=== PATIENT | female | born 1985 | race Caucasian/White ===

== ENCOUNTER 2022-04-26 12:04 | Emergency (ER) | payer MEDICAID ==
[~2022-04-26] VITALS: Ht 170.2 cm; Wt 59.0 kg
[~2022-04-26 12:04] MED LIST: CETI10TA51 PO; HYDR-4353 PO; ONDA8TAB6 SL
[2022-04-26 12:51] LABS: BASOPHILS % (AUTO) 0.2 % (0-1); EOSINOPHILS % (AUTO) 0.1 % (0-6); HEMATOCRIT 46.5 % (35.0-45.0); HEMOGLOBIN 15.6 g/dl (12.0-16.0); LYMPHOCYTES # (AUTO) 1.4 X10'3 (1.1-4.8); LYMPHOCYTES % (AUTO) 13.6 % (21-51); MEAN CORPUSCULAR HEMOGLOBIN 32.7 PG (27.0-31.0); MEAN CORPUSCULAR HGB CONC 33.6 g/dL (33.0-36.5); MEAN CORPUSCULAR VOLUME 97.3 FL (78-98); MEAN PLATELET VOLUME 9.1 FL (7.4-10.4); MONOCYTES # (AUTO) 0.4 X10'3 (0-0.9); MONOCYTES % (AUTO) 3.9 % (2-12); NEUTROPHILS # (AUTO) 8.7 X10'3 (1.8-7.7); NEUTROPHILS % (AUTO) 82.2 % (42-75); PLATELET COUNT 343 X10'3 (140-440); RED BLOOD COUNT 4.78 X10'6 (4.20-5.60); RED CELL DISTRIBUTION WIDTH 12.4 % (11.5-14.5); WHITE BLOOD COUNT 10.6 X10'3 (4.5-11.0)
[2022-04-26 13:19] LABS: ALANINE AMINOTRANSFERASE 31 U/L (12-78); ALBUMIN 4.2 G/DL (3.4-5.0); ALBUMIN/GLOBULIN RATIO 1.1 (1.1-1.5); ALKALINE PHOSPHATASE 72 IU/L (46-116); ANION GAP 11 (8-16); ASPARTATE AMINO TRANSFERASE 20 U/L (10-37); BILIRUBIN,TOTAL 0.5 MG/DL (0.1-1.0); BLOOD UREA NITROGEN 15 MG/DL (7-18); CALCIUM 9.4 MG/DL (8.5-10.1); CHLORIDE 98 MMOL/L (99-107); CREATININE 0.79 MG/DL (0.40-0.90); GLUCOSE 138 MG/DL (70-104); LIPASE 502 U/L (73-393); POTASSIUM 3.3 MMOL/L (3.5-5.1); SODIUM 133 MMOL/L (135-145); TOTAL CARBON DIOXIDE 23.6 MMOL/L (24-32); eGFR 82 ML/MIN
[2022-04-26] MEDS ORDERED: normal saline 1000ML IV soln IVB ONE (13:45)
[2022-04-26] MEDS ORDERED: morphine 4 MG/ML inj SYRINge IV ONE ×2 (14:10→18:07)
[2022-04-26] MEDS ORDERED: ondansetron/PF 4mg/2ml inj IV ONE (14:10)
[2022-04-26 15:48] LABS: HCG SERUM QL NEGATIVE
[2022-04-26] MEDS ORDERED: iohexol 300mg/ml 100ml inj. ONE (16:03)
[2022-04-26 17:49] VITALS: BP 137/85
[2022-04-26 17:49] LABS: CLARITY,URINE SLIGHTLY CLOUDY (Clear); COLOR,URINE YELLOW (Yellow); GLUCOSE, URINE NEGATIVE (Neg); KETONES,URINE NEGATIVE (Neg); LEUKOCYTE ESTERASE ,URINE NEGATIVE (Neg); NITRITES, URINE NEGATIVE (Neg); OCCULT BLOOD,URINE MODERATE (Neg); PROTEIN,URINE TRACE mg/dl (Neg); UROBILINOGEN,URINE 0.2 E.U/dL (0.2-1.0)
[2022-04-26] MEDS ORDERED: ACET325T55 PO (17:51)
[2022-04-26 17:56] LABS: UA COLLECTION TYPE NON-SPECIFIED
[2022-04-26] MEDS ORDERED: HYDR-3965 PO (18:01)
[2022-04-26 18:03] LABS: WBC,URINE 0-4 /HPF (0-4)
[2022-04-26 18:04] LABS: BACTERIA,URINE NONE SEEN /HPF (Neg); RBC,URINE 0-2 /HPF (0-2); SQUAMOUS EPITHELIAL CELL,UR MANY /LPF (FEW)
[2022-04-26] MEDS ORDERED: ONDA4TAB12 PO (18:24)
== END 2022-04-26 18:55 | disposition home or self-care (01) ==
LOC: ER 12:06
DX: K70.10 Alcoholic hepatitis without ascites (principal); R10.9 Unspecified abdominal pain; F17.200 Nicotine dependence, unspecified, uncomplicated; Z88.6 Allergy status to analgesic agent
CPT/HCPCS: 36415; 74177; 80053; 81001; 83690; 84703; 85025; 96361; 96374; 96375; 96376; 99285; J2270; J2405; J3490; J7030; Q9967